=== PATIENT | female | born 2000 | race Caucasian/White ===

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

== ENCOUNTER → 2020-06-05 | Outpatient (REF) | payer BC, OTHER ==
[~2020-06-05] MED LIST changes: +ACET1TAB55 PO; +IBUP80TA PO; +PRENCHW PO
== END ==
LOC: M LAB REF 16:28
PROVIDERS: ATTEND Advanced Practice Midwife
DX: O36.80X0 Pregnancy with inconclusive fetal viability, not applicable or unspecified (principal)

== ENCOUNTER → 2020-07-02 | Outpatient (REF) | payer BC, OTHER ==
[2020-07-02 17:58] LABS: HEMATOCRIT 37.4 % (36.0-47.0); HEMOGLOBIN 12.2 g/dl (12.0-15.5); MEAN CORPUSCULAR HEMOGLOBIN 30.8 pg (27.0-33.0); MEAN CORPUSCULAR HGB CONC 32.6 g/dl (32.0-36.5); MEAN CORPUSCULAR VOLUME 94.4 fl (80.0-96.0); PLATELET COUNT, AUTOMATED 346 10^3/uL (150-450); RED BLOOD COUNT 3.96 10^6/uL (4.00-5.40); WHITE BLOOD COUNT 8.8 10^3/uL (4.0-10.0)
[2020-07-02 18:49] LABS: HCG, SERUM QUANTITATIVE 167594 MIU/ML
[2020-07-02 19:12] LABS: HEPATITIS C VIRUS ABY INDEX 0.1 INDEX (<0.8); HIV 1&2 SCREEN CENTAUR NEGATIVE (NEGATIVE)
== END ==
LOC: M LAB REF 16:29
PROVIDERS: ATTEND Advanced Practice Midwife
DX: Z34.81 Encounter for supervision of other normal pregnancy, first trimester (principal)

== ENCOUNTER → 2020-10-02 | Outpatient (REF) | payer BC, OTHER | LOC: M LAB REF 12:06 | PROVIDERS: ATTEND Advanced Practice Midwife | DX: Z34.82 Encounter for supervision of other normal pregnancy, second trimester (principal) ==

== ENCOUNTER → 2020-11-12 | Outpatient (CLI) | payer BC ==
[2020-11-12 18:05] LABS: HEMATOCRIT 34.9 % (36.0-47.0); HEMOGLOBIN 11.4 g/dl (12.0-15.5); MEAN CORPUSCULAR HEMOGLOBIN 31.9 pg (27.0-33.0); MEAN CORPUSCULAR HGB CONC 32.7 g/dl (32.0-36.5); MEAN CORPUSCULAR VOLUME 97.8 fl (80.0-96.0); PLATELET COUNT, AUTOMATED 291 10^3/uL (150-450); RED BLOOD COUNT 3.57 10^6/uL (4.00-5.40); WHITE BLOOD COUNT 7.3 10^3/uL (4.0-10.0)
== END ==
LOC: M LAB 15:24
PROVIDERS: ATTEND Advanced Practice Midwife
DX: Z34.82 Encounter for supervision of other normal pregnancy, second trimester (principal)

== ENCOUNTER 2021-01-09 09:34 | Inpatient (IN) | payer BC ==
[~2021-01-09] VITALS: Ht 162.6 cm; Wt 59.6 kg
[2021-01-09] MEDS ORDERED: OXYTOCIN DRIP 30 UNITS in IV 1 EA IV PRN (10:10)
[2021-01-09] MEDS ORDERED: LIDOCAINE 1% MDV 20ML VIAL INFIL PRN (10:10)
[2021-01-09] MEDS ORDERED: LR 1,000 ML IV SCH (10:10)
[2021-01-09] MEDS ORDERED: LACTATED RINGER'S 1000 ML IV STA (10:10)
[2021-01-09] MEDS ORDERED: METHYLERGONOVINE MALEATE 0.2 MG/ML VIAL (J2210) IM PRN (10:10)
--- NOTE | 2021-01-09 10:37 | HPEPDOC ---
Obstetrical History & Physical General Date of Admission 01/09/2021 History of Present Illness Chief Complaint: Contractions, term Information Provided By: Patient : 2 Term: 0 Pre-term: 1 Abortions: 0 Livin Care Care: Good Care Dating Final EDC: Jan 30, 2021 Final EDC by: LMP (37wk ), 1st trimester (US) (38w5d) Antepartum Course Pre- weight (lbs.): 109 Admission Weight (lbs.): 128 Past Medical History Past Obstetrical History : Past Obstetrical History: Primgravida Type of Delivery: Spontaneous Vaginal Del. 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, History of STD (chlamydia) Past Medical History Surgical History: Denies/None Family History Significant Family History: No pertinent family hx Social History Marital Status: Family situation: Spouse/partner home Psychosocial History: No pertinent psych hx * Smoker: current smoker (vape) Alcohol: Denies Drugs: denies Abuse Violence Screening Have you been hit/kicked/slapp: No Have you been sexually assault: No Allergies Coded Allergies: No Known Allergies (Verified Allergy, Unknown, 09/26/18) Medications Scheduled Pnv No.118/Iron Fumarate/FA ( 19 Chewable Tablet) 1 Each Tab.chew, 1 TAB PO DAILY Scheduled PRN Acetaminophen (Acetaminophen) 325 Mg Tablet, 650 MG PO Q4HP PRN for PAIN SCALE 1-5 Ibuprofen (Ibuprofen) 800 Mg Tablet, 800 MG PO Q8HP PRN for PAIN SCALE 6-10 Physical Examination Physical Examination GENERAL: Alert and oriented times three. BREAST: . ABDOMEN: Gravid and non-tender to touch. FETUS: Is vertex (VTX) by sterile vaginal examination (SVE), fetus is vertex (VTX) by Bernard. EFW 7.5# HEART RATE: Regular rate and rhythm. LUNGS: Clear to auscultation (CTA). EXTREMITIES: No edema. No clonus. Deep tendon reflexes (DTRs) + 2. Pertinent Laboratoy Data Blood Type: B+ RBC Antibody Screen: Negative HIV: Negative Hepatitis B: Negative Hepatitis C: Negative Rapid Plasma Reagin: Nonreactive Rubella: Immune Chlamydia/Gonorrhea: Negative Group B Streptococcus: Negative Glucose Tolerance Test: 96 Anatomy Ultrasound Ultrasound Date: Sep 11, 2020 Placenta Location: Posterior Normal Anatomy: Yes Placenta Previa: No Estimated Weight (grams): 302 (52%) Other Ultrasounds 06/19/2020 dating 7w OLU 01/18/2021 Steroid Therapy Steroid Therapy: No Vaginal Examination Dilation: 6 cm Effacement: 90% Station: -1 Cervical Consistency: Soft Cervical Position: Posterior Presentation: Cephalic presentation Assessment Heart Rate (FHR): 150 Variability: Moderate Accelerations: Positive Decelerations: None Tocometer Contractions: Yes Frequency: regular, every 2-5 min. Duration: greater than 60 seconds Strength: palpated as strong Assessment/Plan Assessment Winifred is a 20-year-old (G)2 para (P)0-1-0-1 at 38+5 weeks by 7-week ultrasound. Chart states OLU 01/30/2021 according to LMP. Presents to Labor and Delivery (L&D) with reports of contractions since 0400. Denies LOF, bleeding. Reports good movement. Plan Admit and orient. Order Takers Supervisor and consent. Diet: clear liquid. Group B Streptococcus (GBS) negative. Labs and intravenous (IV) per unit protocol. Counseled on Pitocin and induction of labor (IOL). Lactated Ringers (LR): Bolus 500 mL, then at 125 mL/hr. Desires epidural Anticipate normal spontaneous delivery (). C-S as appropriate. Alycia Alva CNM Jan 09, 2021 10:37
[2021-01-09 11:38] LABS: HEMATOCRIT 36.6 % (36.0-47.0); HEMOGLOBIN 11.9 g/dl (12.0-15.5); MEAN CORPUSCULAR HEMOGLOBIN 29.3 pg (27.0-33.0); MEAN CORPUSCULAR HGB CONC 32.5 g/dl (32.0-36.5); MEAN CORPUSCULAR VOLUME 90.1 fl (80.0-96.0); PLATELET COUNT, AUTOMATED 307 10^3/uL (150-450); RED BLOOD COUNT 4.06 10^6/uL (4.00-5.40); WHITE BLOOD COUNT 14.3 10^3/uL (4.0-10.0)
[2021-01-09] MEDS ORDERED: ANUSOL HC CREAM 30GM TOP PRN (11:40)
[2021-01-09] MEDS ORDERED: IBUPROFEN 600MG TAB PO PRN (11:40)
[2021-01-09] MEDS ORDERED: RHOGAM 300 MCG (1500 IU) INJ (J2790) IM SCH (11:40)
[2021-01-09] MEDS ORDERED: METHYLERGONOVINE MALEATE 0.2 MG TAB PO PRN (11:40)
[2021-01-09] MEDS ORDERED: DIBUCAINE 1% OINTMENT 30GM TOP PRN (11:40)
[2021-01-09] MEDS ORDERED: MEASLES,MUMPS,RUBELLA VACCINE INJ (MMR-II) (90707) SC SCH (11:40)
[2021-01-09] MEDS ORDERED: ACETAMINOPHEN TAB 650MG DOSE (2X325MG) PO PRN (11:40)
[2021-01-09] MEDS ORDERED: OXYTOCIN DRIP 30 UNITS in IV 1 EA IV SCH ×4 (11:40)
[2021-01-09] MEDS ORDERED: MOM 30ML SUSPENSION UDC PO PRN (11:40)
[2021-01-09] MEDS ORDERED: DOCUSATE SODIUM 100MG CAPSULE PO PRN (11:40)
[2021-01-09] MEDS ORDERED: ACETAMINOPHEN 500 MG TAB PO PRN (11:40)
--- NOTE | 2021-01-09 11:54 | DNPDOC ---
[facility] Delivery Note Delivery Note DATE OF DELIVERY: 01/09/2021 PREDELIVERY DIAGNOSIS: 37+0/7 weeks' gestation and labor. POST DELIVERY DIAGNOSIS: Delivered. PROCEDURE: Spontaneous vaginal delivery. PROVIDER: Alycia Alva CNM ANESTHESIA: None. ESTIMATED BLOOD LOSS: 200 mL. FINDINGS: 6 pound 9 ounce, 2980gm female , Score 8/9, no nuchal cord. DELIVERY SUMMARY: Patient is a 20-year-old 2 now para 1-1-0-2 who was admitted to labor and delivery for active labor. She coped physiologically. Artificial rupture of membranes for small amount clear fluid 1103. Spontaneous bearing down efforts. Viable female child delivered CONSTANTINO @ 1126, shoulders delivered with ease. Spontaneous respirations with stimulation, transitioned on maternal abdomen. Cord doubly clamped and cut once pulsations ceased. Apgars 8/9. Placenta godoy, intact with 3v cord @ 1131. Succenturiate lobe with velamentous cord insertion between lobes noted. Fundus firmed with massage and IV pitocin 30ml premixed bolus. EBL 200ml. Cervix, vagina, perineum intact. Sponge, sharp and instrument count correct. Alycia Alva CNM Jan 09, 2021 11:54
[2021-01-09] MEDS: IBUPROFEN 800 MG TAB PO PRN ×2 (12:07→20:57)
[2021-01-09] MEDS ORDERED: HOME MED LIST COMPLETE! XX SCH ×2 (12:30)
[2021-01-09] MEDS: PRENATAL VITAMINS CHEWABLE TABLET PO SCH (13:19)
[2021-01-09 18:00] VITALS: BP 135/62
[2021-01-10 06:36] VITALS: BP 95/51
[2021-01-10] MEDS: PRENATAL VITAMINS CHEWABLE TABLET PO SCH (08:13)
[2021-01-10] MEDS ORDERED: BOOSTRIX/ADACEL VACCINE (DIPHTH/PERTUSS/ACELL/TETANUS) 0.5ML SYR IM SCH (12:25)
[2021-01-10] MEDS ORDERED: BOOSTRIX/ADACEL VACCINE (DIPHTH/PERTUSS/ACELL/TETANUS) 0.5ML SYR IM ONE (12:30)
[2021-01-11] MEDS ORDERED: BOOSTRIX/ADACEL VACCINE (DIPHTH/PERTUSS/ACELL/TETANUS) 0.5ML SYR IM SCH (19:15)
== END 2021-01-10 16:55 | disposition home or self-care (01) | DRG 560 ==
LOC: M LDO 09:34 → M LDI 10:32 → M OBS 16:09
PROVIDERS: ADMIT Advanced Practice Midwife; ATTEND Advanced Practice Midwife
PROC: 10E0XZZ Delivery of Products of Conception, External Approach (ICD-10-PCS; principal; 2021-01-09)
PROC: 10907ZC Drainage of Amniotic Fluid, Therapeutic from Products of Conception, Via Natural or Artificial Opening (ICD-10-PCS; 2021-01-09)
DX: O43.193 Other malformation of placenta, third trimester (principal); O69.89X0 Labor and delivery complicated by other cord complications, not applicable or unspecified; Z37.0 Single live birth; Z3A.37 37 weeks gestation of pregnancy